=== PATIENT | female | born 1990 | race American Indian/Alaskan Native ===

== ENCOUNTER 2016-11-16 19:30 | Emergency (ER) | payer SELFPAY ==
[2016-11-16 20:38] LABS: Bilirubin,Urine NEG (Negative); Blood,Urine NEG (Negative); Ketones,Urine NEG (Negative); Leukocyte Esterase,Urine NEG (Negative); Mucus,Urine FEW /HPF; Nitrite,Urine NEG (Negative); Protein,Urine <15 mg/dL mg/dL (Negative); Urobilinogen,Urine < 2.0 mg/dL (<2.0); WBC,Urine < 1.0 /HPF (0.0-6.0)
[2016-11-16 20:51] LABS: Basophils % (Auto) 0.5 % (0.0-1.8); Eosinophils % (Auto) 0.8 % (0.0-4.3); Hematocrit 41.9 % (30.3-42.9); Hemoglobin 13.7 gm/dl (10.1-14.3); Mean Corpuscular HGB Conc 33 % (30-34); Mean Corpuscular Hemoglobin 30 pg (28-32); Mean Corpuscular Volume 93 fl (79-97); Platelet Count 273 K/mm3 (140-440); Red Blood Count 4.53 M/mm3 (3.65-5.03); Red Cell Distribution Width 13.8 % (13.2-15.2); White Blood Count 6.1 K/mm3 (4.5-11.0)
[2016-11-16 21:03] LABS: Alanine Aminotransferase 21 units/L (7-56); Albumin 4.4 g/dL (3.9-5); Albumin/Globulin Ratio 1.2 %; Alkaline Phosphatase 56 units/L (35-129); Anion Gap 16 mmol/L; BUN/Creatinine Ratio 16.25; Blood Urea Nitrogen 13 mg/dL (7-17); Calcium 9.2 mg/dL (8.4-10.2); Carbon Dioxide 29 mmol/L (22-30); Chloride 98.7 mmol/L (98-107); Glucose 106 mg/dL (65-100); Lipase 36 units/L (13-60); Potassium 4.3 mmol/L (3.6-5.0); Sodium 139 mmol/L (137-145)
[2016-11-16] MEDS ORDERED: ZOFRAN ODT PO ONE (21:26)
--- NOTE | 2016-11-16 21:54 | Emergency Department Report ---
HPI <MELLSAMIBRYAN Last Filed: 11/17/16 03:40> - HPI HPI: This is a 26-year-old Afro-Citizen Of [place] female presents emergency Department with a one-week history of some upper abdominal discomfort, decreased appetite and increased nausea without vomiting. She denies any vaginal bleeding or vaginal discharge, dysuria, fever, back pain. She denies having any past medical history. No recent travel or sick contacts at home. She does not have a primary care doctor. She has not taken anything for symptoms prior to presentation. She drove herself and be seen today. <JAYDABROOKS Wooten - Last Filed: 11/18/16 06:54> - General Chief Complaint: Abdominal Pain Time Seen by Provider: 11/16/16 21:07 ED Past Medical Hx - Past Medical History Previous Medical History?: No - Surgical History Past Surgical History?: No - Social History Smoking Status: Never Smoker Substance Use Type: Alcohol <JAYDABROOKS Agustin Last Filed: 11/18/16 06:54> ED Review of Systems ROS: Stated complaint: STOMACH PAIN, NAUSEA, VOMITING Other details as noted in HPI <JOANNEBRYAN Filed: 11/17/16 03:40> ROS: Stated complaint: STOMACH PAIN, NAUSEA, VOMITING Other details as noted in HPI Comment: All other systems reviewed and negative Constitutional: denies: chills, fever Eyes: denies: eye pain, eye discharge, vision change ENT: denies: ear pain, throat pain Respiratory: denies: cough, shortness of breath, wheezing Cardiovascular: denies: chest pain, palpitations Gastrointestinal: abdominal pain, nausea. denies: vomiting Genitourinary: denies: urgency, dysuria, discharge Musculoskeletal: denies: back pain, joint swelling, arthralgia Skin: denies: rash, lesions Neurological: denies: headache, weakness, paresthesias <JAYDABROOKS Agustin Last Filed: 11/18/16 06:54> Physical Exam - Physical Exam Vital Signs: Vital Signs 11/16/16 11/16/16 11/17/16 20:00 21:18 01:33 Temperature 98.4 F 98 F Pulse Rate 67 69 61 Respiratory 18 18 16 Rate Blood Pressure 131/68 133/88 115/74 [Right] O2 Sat by Pulse 100 97 98 Oximetry <JOANNEBRYAN - Last Filed: 11/17/16 03:40> - Physical Exam Vital Signs: Vital Signs 11/16/16 11/16/16 20:00 21:18 Temperature 98.4 F 98 F Pulse Rate 67 69 Respiratory 18 18 Rate Blood Pressure 131/68 133/88 [Right] O2 Sat by Pulse 100 97 Oximetry Physical Exam: GENERAL: The patient is well-developed well-nourished. HEENT: Normocephalic. Atraumatic. Extraocular motions are intact. Patient has moist mucous membranes. He was equal reactive to light bilaterally. NECK: Supple. Trachea is midline. CHEST/LUNGS: Clear to auscultation. There is no respiratory distress noted. HEART/CARDIOVASCULAR: Regular. There is no tachycardia. There is no gallop rub or murmur. ABDOMEN: Abdomen is soft. There is mild tenderness to palpation to the upper quadrants of the abdomen. No guarding rebound tenderness. Patient has normal bowel sounds. There is no abdominal distention. SKIN: There is no rash. There is no edema. There is no diaphoresis. NEURO: The patient is awake, alert, and oriented. The patient is cooperative. The patient has no focal neurologic deficits. The patient has normal speech. MUSCULOSKELETAL: There is no tenderness or deformity. There is no limitation range of motion. There is no evidence of acute injury. <BROOKS MIRANDA - Last Filed: 11/18/16 06:54> ED Course Vital Signs 11/16/16 11/16/16 11/17/16 20:00 21:18 01:33 Temperature 98.4 F 98 F Pulse Rate 67 69 61 Respiratory 18 18 16 Rate Blood Pressure 131/68 133/88 115/74 [Right] O2 Sat by Pulse 100 97 98 Oximetry - Reevaluation(s) Reevaluation #1: 11/17/16 03:41 Abdomen is soft on repeat examination. CT scan negative for acute disease. Patient will be discharged as planned by Dr. Miranda <BRYAN NUNEZ - Last Filed: 11/17/16 03:40> Vital Signs 11/16/16 11/16/16 20:00 21:18 Temperature 98.4 F 98 F Pulse Rate 67 69 Respiratory 18 18 Rate Blood Pressure 131/68 133/88 [Right] O2 Sat by Pulse 100 97 Oximetry <BROOKS MIRANDA - Last Filed: 06/03/17 06:54> ED Medical Decision Making - Lab Data Result diagrams: 11/16/16 20:29 11/16/16 20:29 <BRYAN NUNEZ - Last Filed: 11/17/16 03:40> - Lab Data Result diagrams: 11/16/16 20:29 11/16/16 20:29 - Radiology Data Radiology results: report reviewed, image reviewed interpreted by me: Abdominal x-ray shows nonspecific nonobstructive bowel gas EXAM: US ABDOMEN COMPLETE HISTORY: Abd pain COMPARISONS: None FINDINGS: Grayscale and color Doppler ultrasound evaluation of the entire abdomen Liver is normal in size and contour. Hepatic parenchymal echogenicity is within normal limits. No parenchymal lesion identified. No intra or extrahepatic biliary ductal dilatation. The common duct measures approximately 1 millimeter in caliber. Portal venous flow is appropriately into the liver. Unremarkable sonographic appearance of the gallbladder. No cholelithiasis. Gallbladder wall measures approximately 1-2 millimeters. Imaged portion of the pancreatic head is sonographically unremarkable. The remainder of the pancreas is not well seen secondary to overlying bowel gas. No abdominal ascites or free fluid in Morison's pouch. The right kidney measures up to 9.5 cm air the left kidney measures up to 9.9 in length. The left kidney is heterogeneously hypoechoic with relative prominence of renal pyramids. No hydronephrosis or echogenic shadowing foci to suggest nephrolithiasis in either kidney. The spleen is sonographically normal and measures up to 8 cm in greatest dimension. Imaged portions of the aorta and inferior vena cava are unremarkable. IMPRESSION: Abnormal hypoechoic appearance of the left kidney. Differential diagnosis includes infection versus less likely lymphoma/neoplastic etiology. Correlation with urinalysis is requested. If the clinical picture is equivocal, consider CT for much more sensitive and specific evaluation of abdominal pain. PROCEDURE: CT ABDOMEN PELVIS W CON TECHNIQUE: Computerized axial tomography of the abdomen and pelvis was performed after the IV injection of iodinated nonionic contrast. HISTORY: Abd pain LT SIDE COMPARISON: No prior studies are available for comparison. FINDINGS: Visualized lower thorax: No significant abnormality. Liver: Normal size and attenuation. Spleen: Normal size and attenuation. Gallbladder and biliary system: Normal. Pancreas: Normal. Adrenals: Normal. Kidneys: There are no kidney stones. There is no hydronephrosis.. GI tract: There is no bowel obstruction, colitis or enteritis. The appendix is normal.. Lymph nodes and mesentery: Normal. Vasculature: Normal. Bladder: Normal. Reproductive organs: Uterus is unremarkable. Ovaries are unremarkable. Peritoneum: There is minimal free pelvic fluid. There is no free air, abscess or adenopathy.. Musculoskeletal structures: No significant abnormality. Other: None. IMPRESSION: There is no acute intra-abdominal abnormality. - Medical Decision Making This is a 26-year-old Afro-Citizen Of [place] female presents to the emergency department with a few days of some upper abdominal discomfort, fullness as well as some nausea without vomiting. Patient says she lives home alone and is concerned that there could be something wrong. Associated with some decreased appetite. Patient's labs are unremarkable. An abdominal x-ray was done that did not show any acute process. Due to her upper abdominal discomfort, a ultrasound was done that showed some hypoechoic lesion of the kidney that was concern for infection versus malignancy versus other. Radiology recommended a CT scan for further evaluation. I spoke with the patient in great detail about this and she is interested in making sure that there is nothing wrong with her, especially with this ultrasound finding. We discussed the risks versus benefits of CT scan with IV contrast and she agreed to the procedure. However the CT scan came back resulting is a normal examination without any sign of any abnormality that was previously seen on the ultrasound. The patient was signed out to my colleague, Dr. Nunez, follow the CT scan findings and make sure there was nothing that needed to be taking care of acutely. The patient was given referrals for primary care. She was encouraged to return to the ER with any worsening of her symptoms or any acute distress. - Differential Diagnosis gastroenteritis, , colitis, gastritis, GERD <BROOKS MIRANDA - Last Filed: 11/18/16 06:54> Critical care attestation.: If time is entered above; I have spent that time in minutes in the direct care of this critically ill patient, excluding procedure time. <BRYAN NUNEZ - Last Filed: 11/17/16 03:40> Critical Care Time: No Critical care attestation.: If time is entered above; I have spent that time in minutes in the direct care of this critically ill patient, excluding procedure time. <BROOKS MIRANDA - Last Filed: 11/18/16 06:54> ED Disposition <BRYAN NUNEZ - Last Filed: 11/17/16 03:40> Is pt being admited?: No Time of Disposition: 01:49 <BROOKS MIRANDA S - Last Filed: 11/18/16 06:54> Clinical Impression: Abdominal pain Qualifiers: Abdominal location: upper abdomen, unspecified Qualified Code(s): R10.10 - Upper abdominal pain, unspecified Nausea & vomiting Qualifiers: Vomiting type: unspecified Vomiting Intractability: non-intractable Qualified Code(s): R11.2 - Nausea with vomiting, unspecified Disposition: DISCHARGED TO HOME OR SELFCARE Condition: Stable Instructions: Abdominal Pain (ED) Additional Instructions: Please follow-up with a primary care doctor in the next few days. Return to the emergency department with any worsening of your symptoms or any acute distress. Referrals: PRIMARY CARE, [Primary Care Provider] - 3-5 Days SUNIL SHELLEY MD [Staff Physician] - 3-5 Days [facility] [Outside] - 3-5 Days
--- NOTE | 2016-11-16 23:21 | Ultrasound Report ---
FINAL REPORT EXAM: US ABDOMEN COMPLETE HISTORY: Abd pain COMPARISONS: None FINDINGS: Grayscale and color Doppler ultrasound evaluation of the entire abdomen Liver is normal in size and contour. Hepatic parenchymal echogenicity is within normal limits. No parenchymal lesion identified. No intra or extrahepatic biliary ductal dilatation. The common duct measures approximately 1 millimeter in caliber. Portal venous flow is appropriately into the liver. Unremarkable sonographic appearance of the gallbladder. No cholelithiasis. Gallbladder wall measures approximately 1-2 millimeters. Imaged portion of the pancreatic head is sonographically unremarkable. The remainder of the pancreas is not well seen secondary to overlying bowel gas. No abdominal ascites or free fluid in Morison's pouch. The right kidney measures up to 9.5 cm air the left kidney measures up to 9.9 in length. The left kidney is heterogeneously hypoechoic with relative prominence of renal pyramids. No hydronephrosis or echogenic shadowing foci to suggest nephrolithiasis in either kidney. The spleen is sonographically normal and measures up to 8 cm in greatest dimension. Imaged portions of the aorta and inferior vena cava are unremarkable. IMPRESSION: Abnormal hypoechoic appearance of the left kidney. Differential diagnosis includes infection versus less likely lymphoma/neoplastic etiology. Correlation with urinalysis is requested. If the clinical picture is equivocal, consider CT for much more sensitive and specific evaluation of abdominal pain. Notification initiated via [employer] support coordinator immediately following the exam.
[2016-11-16] MEDS ORDERED: NACL ONE (23:45)
[2016-11-17 01:33] VITALS: BP 115/74
--- NOTE | 2016-11-17 03:01 | Cat Scan Report ---
FINAL REPORT PROCEDURE: CT ABDOMEN PELVIS W CON TECHNIQUE: Computerized axial tomography of the abdomen and pelvis was performed after the IV injection of iodinated nonionic contrast. HISTORY: Abd pain LT SIDE COMPARISON: No prior studies are available for comparison. FINDINGS: Visualized lower thorax: No significant abnormality. Liver: Normal size and attenuation. Spleen: Normal size and attenuation. Gallbladder and biliary system: Normal. Pancreas: Normal. Adrenals: Normal. Kidneys: There are no kidney stones. There is no hydronephrosis.. GI tract: There is no bowel obstruction, colitis or enteritis. The appendix is normal.. Lymph nodes and mesentery: Normal. Vasculature: Normal. Bladder: Normal. Reproductive organs: Uterus is unremarkable. Ovaries are unremarkable. Peritoneum: There is minimal free pelvic fluid. There is no free air, abscess or adenopathy.. Musculoskeletal structures: No significant abnormality. Other: None. IMPRESSION: There is no acute intra-abdominal abnormality.
== END 2016-11-17 04:15 | disposition home or self-care (01) ==
LOC: ED 19:30
DX: R10.10 Upper abdominal pain, unspecified (principal); R11.2 Nausea with vomiting, unspecified
CPT/HCPCS: 36415; 74020; 74177; 76700; 80053; 81001; 83690; 84703; 85025; 99284; Q9967; Q0162

== ENCOUNTER 2021-11-17 08:30 | Emergency (ER) | payer OTHER ==
[2021-11-17 10:47] VITALS: BP 133/88
--- NOTE | 2021-11-17 11:55 | Emergency Department Report ---
ED Neuro Deficit HPI - General Chief Complaint: Neuro Symptoms/Deficit Stated Complaint: NUMBNESS/PAIN LEFT FACE Time Seen by Provider: 11/17/21 11:53 Source: patient Mode of arrival: Ambulatory Limitations: No Limitations - History of Present Illness Initial Comments: Patient is a 31-year-old female presented emergency department with complaint of possible stroke. Patient last known normal was at 6:30 AM. Patient is a stroke alert and goes emergently to the CT scanner. Patient unable to give any additional history. - Related Data Allergies/Adverse Reactions: Allergies Allergy/AdvReac Type Severity Reaction Status Date / Time No Known Allergies Allergy Verified 11/16/16 20:03 ED Review of Systems ROS: Stated complaint: NUMBNESS/PAIN LEFT FACE Other details as noted in HPI ED Past Medical Hx - Social History Smoking Status: Never Smoker Substance Use Type: Alcohol ED Neuro Physical Exam - General Limitations: No Limitations ED Course Vital Signs 11/17/21 10:43 Temperature 98 F Pulse Rate 99 H Respiratory 16 Rate Blood Pressure 133/88 [Left] O2 Sat by Pulse 99 Oximetry Critical care attestation.: If time is entered above; I have spent that time in minutes in the direct care of this critically ill patient, excluding procedure time. ED Disposition Condition: Stable
--- NOTE | 2021-11-17 13:47 | Emergency Department Report ---
ED General Adult HPI - General Chief complaint: Neuro Symptoms/Deficit Stated complaint: NUMBNESS/PAIN LEFT FACE Time Seen by Provider: 11/17/21 11:53 Source: patient Mode of arrival: Ambulatory Limitations: No Limitations - History of Present Illness Initial comments: Is a 31-year-old female presented emergency department complaint of left-sided facial pressure. She is concerned she could have an issue with her tooth. Symptoms started on Sunday. She also states that she has some mild numbness. Previously she noted that she may have had some chest pain and issues with her left arm with paresthesias. She denies any past medical history she does not have any risk factors for cardiac disease or stroke. - Related Data Previous Rx's Medication Instructions Recorded Last Taken Type Amoxicillin/K Clav Tab [Augmentin 1 tab PO Q12HR 10 Days #20 tab 11/17/21 Unknown Rx 875 mg] Allergies Allergy/AdvReac Type Severity Reaction Status Date / Time No Known Allergies Allergy Verified 11/16/16 20:03 ED Review of Systems ROS: Stated complaint: NUMBNESS/PAIN LEFT FACE Other details as noted in HPI Constitutional: denies: chills, fever Eyes: denies: eye pain, eye discharge, vision change ENT: denies: ear pain, throat pain Respiratory: denies: cough, shortness of breath, wheezing Cardiovascular: denies: chest pain, palpitations Endocrine: no symptoms reported Gastrointestinal: denies: abdominal pain, nausea, diarrhea Genitourinary: denies: urgency, dysuria, discharge Musculoskeletal: denies: back pain, joint swelling, arthralgia Skin: denies: rash, lesions Neurological: numbness, paresthesias. denies: headache, weakness Psychiatric: denies: anxiety, depression Hematological/Lymphatic: denies: easy bleeding, easy bruising ED Past Medical Hx - Social History Smoking Status: Never Smoker Substance Use Type: Alcohol - Medications Home Medications: Home Medications Medication Instructions Recorded Confirmed Last Taken Type Amoxicillin/K Clav Tab [Augmentin 1 tab PO Q12HR 10 Days #20 tab 11/17/21 Unknown Rx 875 mg] ED Physical Exam - General Limitations: No Limitations ED Course Vital Signs 11/17/21 10:43 Temperature 98 F Pulse Rate 99 H Respiratory 16 Rate Blood Pressure 133/88 [Left] O2 Sat by Pulse 99 Oximetry ED Medical Decision Making - Medical Decision Making This is a 31-year-old female presents emergency department with complaint of pressure in the left cheek jaw area. No evidence of large abscess. This could be a salivary gland swelling. I offered patient work-up for cardiac/neuro causes but patient states she would rather try antibiotics and follow-up with primary care and a dentist. Critical care attestation.: If time is entered above; I have spent that time in minutes in the direct care of this critically ill patient, excluding procedure time. ED Disposition Clinical Impression: Paresthesia, Salivary gland swelling Disposition: 01 HOME / SELF CARE / HOMELESS Is pt being admited?: No Does the pt Need Aspirin: No Condition: Stable Instructions: Paresthesia, Salivary Gland Infection Additional Instructions: Please return if symptoms worsen. Prescriptions: Amoxicillin/K Clav Tab [Augmentin 875 mg] 1 tab PO Q12HR 10 Days #20 tab Referrals: TAWNYA RUELAS MD [Referring] - 3-5 Days Time of Disposition: 13:44
== END 2021-11-17 14:21 | disposition home or self-care (01) ==
LOC: ED 08:30
DX: R20.2 Paresthesia of skin (principal); R59.9 Enlarged lymph nodes, unspecified; Z79.899 Other long term (current) drug therapy
CPT/HCPCS: 99282